=== PATIENT | female | born 1945 | race Caucasian/White ===

== ENCOUNTER 2017-06-18 09:07 | Day surgery (SDC) | payer MEDICARE, BC ==
[~2017-06-18] VITALS: Ht 162.6 cm; Wt 65.4 kg
[~2017-06-18 09:07] MED LIST: Aspir 8181 MG; Calcium + Vita1 EACH PO; ERGO400; Femring1 EAC1; Multiple Vitam1 EACH PO
[2017-06-18] MEDS ORDERED: ZYRTEC10 M1 PO (09:47)
[2017-06-18] MEDS ORDERED: MONT10T PO (09:47)
== END 2017-06-18 11:35 | disposition home or self-care (01) ==
LOC: ORSCSDS 09:07
PROVIDERS: Ophthalmology
PROC: 08RK3JZ Replacement of Left Lens with Synthetic Substitute, Percutaneous Approach (ICD-10-PCS; principal; 2017-06-18 10:30)
DX: H25.12 Age-related nuclear cataract, left eye (principal); J44.9 Chronic obstructive pulmonary disease, unspecified; Z79.82 Long term (current) use of aspirin; Z79.899 Other long term (current) drug therapy
CPT/HCPCS: J2250; J3301; J7040; V2632

== ENCOUNTER 2017-08-16 17:46 | Emergency (ER) | payer MEDICARE, BC ==
[~2017-08-16] VITALS: Ht 162.6 cm; Wt 63.5 kg
[~2017-08-16 17:46] MED LIST changes: +MONT10T PO; +ZYRTEC10 M1 PO
[2017-08-16 19:10] LABS: BASOPHILS ABSOLUTE AUTO 0.06 K/mm3 (0.00-0.23); BASOPHILS PERCENT AUTO 1 % (0-2); EOSINOPHILS ABSOLUTE AUTO 0.15 K/mm3 (0.00-0.68); EOSINOPHILS PERCENT AUTO 2 % (0-6); Hematocrit 38.9 % (33.0-51.0); Hemoglobin 12.8 g/dL (11.5-16.0); IMMATURE GRAN ABSOLUTE AUTO 0.01 K/mm3 (0.00-0.10); IMMATURE GRAN PERCENT AUTO 0 % (0-1); LYMPHOCYTES PERCENT AUTO 31 % (21-46); MONOCYTES ABSOLUTE AUTO 0.55 K/mm3 (0.16-1.47); MONOCYTES PERCENT AUTO 9 % (4-13); Mean Corpuscular HGB 30.5 pg (26.0-34.0); Mean Corpuscular HGB Conc 32.9 g/dL (31.5-36.5); Mean Corpuscular Volume 93 fL (80-100); Mean Platelet Volume 10.5 fL (9.1-12.4); NEUTROPHILS ABSOLUTE AUTO 3.46 K/mm3 (1.96-9.15); NEUTROPHILS PERCENT AUTO 56 % (41-73); Platelet Count 253 K/mm3 (150-400); RDW Coefficient Variation 12.9 % (11.7-14.2); RDW Standard Deviation 44.2 fL (35.1-46.3); White Blood Cell Count 6.13 K/mm3 (4.00-11.30)
[2017-08-16 19:22] LABS: Source, Urine Clean Catch
[2017-08-16 19:40] LABS: Appearance, Urine Clear (Clear); Bilirubin, Urine Neg (Neg); Blood, Urine Neg (Neg); Color, Urine Yellow (P-Yellow); Glucose Qualitative, Urine Neg (Neg); Ketones, Urine Neg (Neg); Leukocyte Esterase, Urine Neg (Neg); Nitrite, Urine Neg (Neg); Protein, Urine Neg (Neg); Urobilinogen, Urine NORM (Normal)
[2017-08-16 20:30] LABS: Alanine Aminotransfer (ALT/SGP 16 U/L (12-78); Albumin, Blood 3.8 g/dL (3.4-5.0); Albumin/Globulin Ratio 1.2 (0.8-1.8); Alk Phos 67 U/L (50-136); Anion Gap 8 mmol/L (6-16); Aspartate Aminotrans (AST/SGOT 20 U/L (12-37); Bilirubin, Total 0.3 mg/dL (0.1-1.0); Blood Urea Nitrogen 17 mg/dL (8-24); Bun/Creatinine Ratio 20.7 (12.0-20.0); CO2, Blood 28 mmol/L (21-32); Calcium, Blood 9.3 mg/dL (8.5-10.1); Chloride, Blood 104 mmol/L (98-108); Creatinine, Blood 0.82 mg/dL (0.40-1.00); Globulin, Blood 3.2 g/dL (2.2-4.0); Glomerular Filtration Rate >60 (60-); Glucose, Blood 98 mg/dL (70-99); Potassium, Blood 3.6 mmol/L (3.5-5.5); Sodium, Blood 140 mmol/L (136-145)
[2017-08-16] MEDS ORDERED: Amlodipine Bes2.5 MG PO (20:45)
== END 2017-08-16 21:36 | disposition home or self-care (01) ==
LOC: ER 17:46
PROVIDERS: Emergency Medicine; Physician Assistant
DX: S06.0X0A Concussion without loss of consciousness, initial encounter (principal); R07.89 Other chest pain; I10 Essential (primary) hypertension; Z87.891 Personal history of nicotine dependence; W22.8XXA Striking against or struck by other objects, initial encounter
CPT/HCPCS: 80053; 81003; 84484; 85025; 93005; 93010; 99283

== ENCOUNTER → 2017-09-16 | Outpatient (CLI) | payer MEDICARE, BC ==
[~2017-09-16] MED LIST changes: +Amlodipine Bes2.5 MG PO
[2017-09-16 15:32] LABS: BASOPHILS ABSOLUTE AUTO 0.04 K/mm3 (0.00-0.23); BASOPHILS PERCENT AUTO 1 % (0-2); EOSINOPHILS PERCENT AUTO 2 % (0-6); Hematocrit 39.5 % (33.0-51.0); Hemoglobin 13.2 g/dL (11.5-16.0); IMMATURE GRAN ABSOLUTE AUTO 0.01 K/mm3 (0.00-0.10); IMMATURE GRAN PERCENT AUTO 0 % (0-1); LYMPHOCYTES ABSOLUTE AUTO 1.86 K/mm3 (0.84-5.20); LYMPHOCYTES PERCENT AUTO 32 % (21-46); MONOCYTES PERCENT AUTO 7 % (4-13); Mean Corpuscular HGB 30.8 pg (26.0-34.0); Mean Corpuscular HGB Conc 33.4 g/dL (31.5-36.5); Mean Corpuscular Volume 92 fL (80-100); Mean Platelet Volume 10.2 fL (9.1-12.4); NEUTROPHILS PERCENT AUTO 59 % (41-73); Platelet Count 263 K/mm3 (150-400); RDW Coefficient Variation 13.2 % (11.7-14.2); RDW Standard Deviation 44.5 fL (35.1-46.3); Red Blood Cell Count 4.29 M/mm3 (3.80-5.20); White Blood Cell Count 5.91 K/mm3 (4.00-11.30)
[2017-09-16 15:56] LABS: Alanine Aminotransfer (ALT/SGP 21 U/L (12-78); Albumin, Blood 3.9 g/dL (3.4-5.0); Albumin/Globulin Ratio 1.1 (0.8-1.8); Alk Phos 62 U/L (40-126); Anion Gap 7 mmol/L (6-16); Aspartate Aminotrans (AST/SGOT 18 U/L (12-37); Bilirubin, Total 0.4 mg/dL (0.1-1.0); Blood Urea Nitrogen 14 mg/dL (8-24); Bun/Creatinine Ratio 17.5 (12.0-20.0); CO2, Blood 31 mmol/L (21-32); Calcium, Blood 9.2 mg/dL (8.5-10.1); Chloride, Blood 104 mmol/L (98-108); Globulin, Blood 3.4 g/dL (2.2-4.0); Glomerular Filtration Rate >60 (60-); Glucose, Blood 99 mg/dL (70-99); Potassium, Blood 4.1 mmol/L (3.5-5.5); Sodium, Blood 142 mmol/L (136-145); Thyroid Stimulating Hormone 3.181 uIU/mL (0.360-4.800); Total Protein, Blood 7.3 g/dL (6.4-8.2)
[2017-09-16 15:57] LABS: Troponin I <0.017 ng/mL (0.000-0.040)
== END ==
LOC: LAB EV 15:28 → LAB SHORT 15:28
PROVIDERS: Physician Assistant Medical
DX: R07.9 Chest pain, unspecified (principal); R53.83 Other fatigue
CPT/HCPCS: 80053; 83690; 84443; 84484; 85025

== ENCOUNTER → 2018-01-14 | Outpatient (CLI) | payer MEDICARE, BC ==
[2018-01-16 14:10] LABS: HPV 16 Negative (Negative); HPV 18 Negative (Negative); HPV OTHER HR TYPES Negative (Negative)
== END | disposition home or self-care (01) ==
LOC: LAB SHORT 10:48 → LAB 10:48
PROVIDERS: Obstetrics & Gynecology Gynecology
DX: Z12.72 Encounter for screening for malignant neoplasm of vagina (principal); L29.3 Anogenital pruritus, unspecified
CPT/HCPCS: 87070; 87205; 87624; G0123

== ENCOUNTER 2018-07-06 09:19 | Day surgery (SDC) | payer MEDICARE, BC ==
[~2018-07-06] VITALS: Ht 162.6 cm; Wt 65.4 kg
[2018-07-06] MEDS ORDERED: CHOL10002 (10:10)
[2018-07-06] MEDS ORDERED: CALCIUM + D SO1 EACH (10:11)
[2018-07-06] MEDS ORDERED: ACID REDUCER20 MG (10:11)
== END 2018-07-06 12:00 | disposition home or self-care (01) ==
LOC: ORSCSDS 09:19
PROVIDERS: Internal Medicine Gastroenterology
PROC: 0DBK8ZX Excision of Ascending Colon, Via Natural or Artificial Opening Endoscopic, Diagnostic (ICD-10-PCS; principal; 2018-07-06 10:30)
PROC: 0DBH8ZX Excision of Cecum, Via Natural or Artificial Opening Endoscopic, Diagnostic (ICD-10-PCS; principal; 2018-07-06 10:30)
DX: Z12.11 Encounter for screening for malignant neoplasm of colon (principal); K57.30 Diverticulosis of large intestine without perforation or abscess without bleeding; K21.9 Gastro-esophageal reflux disease without esophagitis; Z79.82 Long term (current) use of aspirin; Z87.891 Personal history of nicotine dependence; Z79.899 Other long term (current) drug therapy
CPT/HCPCS: 88305; J7120

== ENCOUNTER 2018-12-28 12:23 | Day surgery (SDC) | payer MEDICARE, BC ==
[~2018-12-28] VITALS: Ht 162.6 cm; Wt 65.6 kg
[~2018-12-28 12:23] MED LIST changes: +ACID REDUCER20 MG; +CALCIUM + D SO1 EACH; +CHOL10002
[2018-12-28] MEDS ORDERED: Azor 5-20 MG T1 EACH (12:55)
== END 2018-12-28 14:08 | disposition home or self-care (01) ==
LOC: ORSCSDS 12:23
PROVIDERS: Internal Medicine Gastroenterology
PROC: 0D757ZZ Dilation of Esophagus, Via Natural or Artificial Opening (ICD-10-PCS; principal; 2018-12-28 13:30)
PROC: 0DB58ZX Excision of Esophagus, Via Natural or Artificial Opening Endoscopic, Diagnostic (ICD-10-PCS; principal; 2018-12-28 13:30)
DX: K21.9 Gastro-esophageal reflux disease without esophagitis (principal); R13.14 Dysphagia, pharyngoesophageal phase; K44.9 Diaphragmatic hernia without obstruction or gangrene; I10 Essential (primary) hypertension; Z87.891 Personal history of nicotine dependence; Z79.82 Long term (current) use of aspirin; Z79.899 Other long term (current) drug therapy
CPT/HCPCS: 87081; 88305; J2704; J7120

== ENCOUNTER → 2019-03-17 | Outpatient (CLI) | payer MEDICARE, BC ==
[~2019-03-17] MED LIST changes: +Azor 5-20 MG T1 EACH
== END | disposition home or self-care (01) ==
LOC: PLD 11:40 → LAB SHORT 11:40
DX: D22.5 Melanocytic nevi of trunk (principal)
CPT/HCPCS: 88305

== ENCOUNTER → 2019-07-21 | Outpatient (CLI) | payer MEDICARE, BC ==
[2019-07-21 12:13] LABS: BASOPHILS ABSOLUTE AUTO 0.04 K/mm3 (0.00-0.23); BASOPHILS PERCENT AUTO 1 % (0-2); EOSINOPHILS ABSOLUTE AUTO 0.13 K/mm3 (0.00-0.68); EOSINOPHILS PERCENT AUTO 2 % (0-6); Hematocrit 38.4 % (33.0-51.0); IMMATURE GRAN ABSOLUTE AUTO 0.01 K/mm3 (0.00-0.10); IMMATURE GRAN PERCENT AUTO 0 % (0-1); LYMPHOCYTES ABSOLUTE AUTO 1.79 K/mm3 (0.84-5.20); LYMPHOCYTES PERCENT AUTO 33 % (21-46); MONOCYTES ABSOLUTE AUTO 0.42 K/mm3 (0.16-1.47); MONOCYTES PERCENT AUTO 8 % (4-13); Mean Corpuscular HGB 26.7 pg (26.0-34.0); Mean Corpuscular HGB Conc 31.3 g/dL (31.5-36.5); Mean Corpuscular Volume 86 fL (80-100); Mean Platelet Volume 10.3 fL (9.1-12.4); NEUTROPHILS ABSOLUTE AUTO 3.12 K/mm3 (1.96-9.15); NEUTROPHILS PERCENT AUTO 57 % (41-73); Platelet Count 338 K/mm3 (150-400); RDW Coefficient Variation 14.9 % (11.7-14.2); RDW Standard Deviation 46.5 fL (35.1-46.3); Red Blood Cell Count 4.49 M/mm3 (3.80-5.20); White Blood Cell Count 5.51 K/mm3 (4.00-11.30)
[2019-07-21 12:15] LABS: Anion Gap 5 mmol/L (6-16); Blood Urea Nitrogen 13 mg/dL (8-24); Bun/Creatinine Ratio 15.3 (12.0-20.0); CO2, Blood 30 mmol/L (21-32); Calcium, Blood 9.5 mg/dL (8.5-10.1); Chloride, Blood 104 mmol/L (98-108); Creatinine, Blood 0.85 mg/dL (0.40-1.00); Glomerular Filtration Rate >60 (60-); Glucose, Blood 108 mg/dL (70-99); Potassium, Blood 4.1 mmol/L (3.5-5.5); Sodium, Blood 139 mmol/L (136-145)
== END | disposition home or self-care (01) ==
LOC: LAB EV 12:06 → LAB SHORT 12:06
PROVIDERS: Family Medicine
DX: J06.9 Acute upper respiratory infection, unspecified (principal)
CPT/HCPCS: 80048; 85025

== ENCOUNTER 2019-10-24 07:25 | Observation (INO) | payer MEDICARE, BC ==
[~2019-10-24] VITALS: Ht 162.6 cm; Wt 67.8 kg
[2019-10-24] MEDS ORDERED: AMLODIPINE BES2.5 MG PO (07:51)
[2019-10-24] MEDS ORDERED: ATORVASTATIN CA20 MG PO (07:52)
[2019-10-24] MEDS ORDERED: OMEPRAZOLE CAP 20M (07:52)
[2019-10-24] MEDS ORDERED: MONTELUKAST TAB 10M (07:52)
[2019-10-24 08:03] LABS: BASOPHILS ABSOLUTE AUTO 0.07 K/mm3 (0.00-0.23); BASOPHILS PERCENT AUTO 1 % (0-2); EOSINOPHILS ABSOLUTE AUTO 0.12 K/mm3 (0.00-0.68); EOSINOPHILS PERCENT AUTO 2 % (0-6); Hematocrit 37.2 % (33.0-51.0); Hemoglobin 11.4 g/dL (11.5-16.0); IMMATURE GRAN ABSOLUTE AUTO 0.01 K/mm3 (0.00-0.10); IMMATURE GRAN PERCENT AUTO 0 % (0-1); LYMPHOCYTES ABSOLUTE AUTO 1.66 K/mm3 (0.84-5.20); LYMPHOCYTES PERCENT AUTO 31 % (21-46); MONOCYTES ABSOLUTE AUTO 0.52 K/mm3 (0.16-1.47); MONOCYTES PERCENT AUTO 10 % (4-13); Mean Corpuscular HGB 26.5 pg (26.0-34.0); Mean Corpuscular HGB Conc 30.6 g/dL (31.5-36.5); Mean Corpuscular Volume 87 fL (80-100); Mean Platelet Volume 10.4 fL (9.1-12.4); NEUTROPHILS ABSOLUTE AUTO 3.02 K/mm3 (1.96-9.15); NEUTROPHILS PERCENT AUTO 56 % (41-73); Platelet Count 273 K/mm3 (150-400); RDW Coefficient Variation 16.1 % (11.7-14.2); RDW Standard Deviation 50.7 fL (35.1-46.3)
[2019-10-24 08:16] LABS: Alanine Aminotransfer (ALT/SGP 19 U/L (12-78); Albumin, Blood 3.8 g/dL (3.4-5.0); Albumin/Globulin Ratio 1.1 (0.8-1.8); Alk Phos 73 U/L (50-136); Anion Gap 6 mmol/L (6-16); Aspartate Aminotrans (AST/SGOT 24 U/L (12-37); Bilirubin, Total 0.6 mg/dL (0.1-1.0); Blood Urea Nitrogen 15 mg/dL (8-24); Bun/Creatinine Ratio 18.1 (12.0-20.0); CO2, Blood 28 mmol/L (21-32); Chloride, Blood 105 mmol/L (98-108); Creatinine, Blood 0.83 mg/dL (0.40-1.00); Globulin, Blood 3.6 g/dL (2.2-4.0); Glomerular Filtration Rate >60 (60-); Glucose, Blood 97 mg/dL (70-99); Potassium, Blood 3.6 mmol/L (3.5-5.5); Sodium, Blood 139 mmol/L (136-145); Total Protein, Blood 7.4 g/dL (6.4-8.2); Troponin I 0.049 ng/mL (0.000-0.040)
[2019-10-24 10:28] LABS: Creatine Kinase MB 1.6 ng/mL (0.0-3.6); Creatine Kinase MB Index 1.8 (0.0-4.0)
[2019-10-24] MEDS ORDERED: Vitamin D2000 UNIT PO (11:49)
[2019-10-24] MEDS ORDERED: ASCO500 PO (11:50)
[2019-10-24] MEDS ORDERED: MULTIVITAMINS1 EAC3 PO (11:50)
[2019-10-24 14:03] LABS: Creatine Kinase MB 1.5 ng/mL (0.0-3.6); Creatine Kinase MB Index 2.4 (0.0-4.0)
--- NOTE | 2019-10-24 16:12 | NUR ---
SPOKE TO DR SPRAGUE. OKAY TO STOP IVF IF PT EATING AND DRINKING.
--- NOTE | 2019-10-24 16:38 | NUR ---
ASSUMED CARE FOR PT ABOUT 1530. PT STATES LIGHT TWINGES CHEST PRESURE/PAIN. BETTER THAN BEFORE. STATES IMPROVEMENT. DISCUSSED AND OFFERED TYLENOL FOR HEADACHE AND TUMS. WILL FOLLOW. PT AWARE TO CALL IF CONTINUES OR INCREASES. BED IN LOW POSITION,C ALL LITE IN REACH, CALLS APPROP
--- NOTE | 2019-10-24 16:41 | NUR ---
PT QUITE PLEASANT THIS CHERYL. OCCATIONAL LIGHT TWINGES OF PAIN IN CHEST. ADVISED TO CALL IF INCREASES. D/C IVF IS DRINKING, EATING . TROP DECREASED. CONTINUE TO MONITOR PT. BED IN LOW POSITION,C ALL LITE IN REACH, CALLS APPROP
[2019-10-24 20:13] LABS: Creatine Kinase MB 1.3 ng/mL (0.0-3.6); Creatine Kinase MB Index 1.9 (0.0-4.0)
--- NOTE | 2019-10-25 00:24 | NUR ---
PT. C/O CHEST PRESSURE/SQUEEZING 08/09. MOST RECENT TROP= 0.045, UP FROM PREVIOUS NORMAL TROP. PER TELE PT. RUNNING SR 60, BP @ 169/81. PT. REFUSED NITRO SL DUE TO CONCERN OF ENG. MEDICATED W/FENTANYL PER EMAR. PT. TOLERATED WELL W/MINIMAL RELIEF. NOTIFIED ZITA CAMPER ASSEMBLER. RECEIVED NEW MEDICATION ORDERS. ADMINISTERED PER EMAR. PT. APPEARS TO BE RESTING COMFORTABLY IN BED. NO APPARENT DISTRESS NOTED. DENIES NEEDS AT THIS TIME. CALL LIGHT WITHIN REACH AND SIDE RAILS UP X2. WILL CONT TO MONITOR.
[2019-10-25 02:12] LABS: BASOPHILS ABSOLUTE AUTO 0.07 K/mm3 (0.00-0.23); BASOPHILS PERCENT AUTO 1 % (0-2); EOSINOPHILS ABSOLUTE AUTO 0.13 K/mm3 (0.00-0.68); EOSINOPHILS PERCENT AUTO 3 % (0-6); Hematocrit 35.4 % (33.0-51.0); IMMATURE GRAN ABSOLUTE AUTO 0.01 K/mm3 (0.00-0.10); IMMATURE GRAN PERCENT AUTO 0 % (0-1); LYMPHOCYTES ABSOLUTE AUTO 1.49 K/mm3 (0.84-5.20); LYMPHOCYTES PERCENT AUTO 28 % (21-46); MONOCYTES ABSOLUTE AUTO 0.53 K/mm3 (0.16-1.47); MONOCYTES PERCENT AUTO 10 % (4-13); Mean Corpuscular HGB 26.3 pg (26.0-34.0); Mean Corpuscular HGB Conc 31.1 g/dL (31.5-36.5); Mean Corpuscular Volume 85 fL (80-100); Mean Platelet Volume 10.3 fL (9.1-12.4); NEUTROPHILS ABSOLUTE AUTO 3.01 K/mm3 (1.96-9.15); NEUTROPHILS PERCENT AUTO 58 % (41-73); Platelet Count 297 K/mm3 (150-400); RDW Coefficient Variation 15.9 % (11.7-14.2); RDW Standard Deviation 49.4 fL (35.1-46.3); Red Blood Cell Count 4.19 M/mm3 (3.80-5.20); White Blood Cell Count 5.24 K/mm3 (4.00-11.30)
[2019-10-25 02:31] LABS: Anion Gap 6 mmol/L (6-16); Blood Urea Nitrogen 14 mg/dL (8-24); Bun/Creatinine Ratio 17.6 (12.0-20.0); CHOL/HDL RATIO 2.4; CO2, Blood 30 mmol/L (21-32); Calcium, Blood 9.4 mg/dL (8.5-10.1); Chloride, Blood 104 mmol/L (98-108); Cholesterol 169 mg/dL (50-200); Glomerular Filtration Rate >60 (60-); Glucose, Blood 99 mg/dL (70-99); HDL Cholesterol 69 mg/dL (>39); LDL/HDL RATIO 1.1; Low Density Lipoprotein Chol 75 mg/dL (0-110); Magnesium, Blood 1.8 mg/dL (1.6-2.4); Potassium, Blood 3.6 mmol/L (3.5-5.5); Sodium, Blood 140 mmol/L (136-145); Triglycerides 127 mg/dL (30-160); Troponin I 0.042 ng/mL (0.000-0.040); Very Low Density Lipoprot Chol 25 mg/dL (6-32)
--- NOTE | 2019-10-25 04:27 | NUR ---
SHIFT SUMMARY- PT. A&OX4, INDEPENDENT IN ROOM. AFTER TREATED FOR CHEST PAIN PER ORDERS, SLEPT WELL THE REST OF THE NIGHT. NO APPARENT DISTRESS NOTED. LAST TROP TRENDING DOWN. DENIES ANY NEEDS AT THIS TIME. CALL LIGHT WITHIN REACH AND SIDE RAILS UPX2. WILL CONT TO MONITOR.
--- NOTE | 2019-10-25 11:20 | NUR ---
Echocardiogram completed.
--- NOTE | 2019-10-25 18:18 | NUR ---
SHIFT SUMMARY. A&OX4, INDEPENDENT IN ROOM. PT WITH MILD 3/10 CHEST PRESSURE EARLY THIS AM, PT REPORTED THAT THIS PRESSURE HAD SUBSIDED BY LATER MORNING WITHOUT FURTHER INTERVENTION. PT DENIES SOB, N/V. DR. HOBBS CONSULTED TODAY, CARDIOLYTE STRESS TEST ORDERED, FIRST PART COMPLETED THIS AFTERNOON. PT IS TO HAVE NO CAFFEINE PAST 1999 TONIGHT, NPO AFTER BREAKFAST TOMORROW PER [facility], SECOND PART OF STRESS TEST TO BE COMPLETED AFTERNOON.
--- NOTE | 2019-10-26 04:36 | NUR ---
GAUGE CONTROLLER SUMMARY NO ACUTE CHANGES THIS SHIFT. PT AAOX4 AND INDEPENDENT IN ROOM. DENIES SOB OR CP. NO CHANGES ON TELEMETRY. PT TO HAVE PART 2 OF STRESS TEST LATER TODAY. VSS, WILL CONTINUE TO MONITOR.
[2019-10-26] MEDS ORDERED: MONT10T PO (17:18)
[2019-10-26] MEDS ORDERED: OMEP20ER PO (17:19)
--- NOTE | 2019-10-26 18:23 | NUR ---
DISCHARGE NOTE: EDUCATION/ DISCHARGE INSTRUCTIONS GONE OVER WITH PT. PT DISCHARGED HOME AT 1753. TAKEN TO FAMILY VIA W/C. TELE AND IV DC'D IN TACT.
== END 2019-10-26 17:53 | disposition home or self-care (01) ==
LOC: ER 07:25 → MEDS 07:26
PROVIDERS: Emergency Medicine; ADMIT Family Medicine
DX: R07.89 Other chest pain (principal); I10 Essential (primary) hypertension; E78.5 Hyperlipidemia, unspecified; K21.9 Gastro-esophageal reflux disease without esophagitis; Z87.891 Personal history of nicotine dependence; Z79.899 Other long term (current) drug therapy; Z88.5 Allergy status to narcotic agent; Z88.2 Allergy status to sulfonamides; Z88.8 Allergy status to other drugs, medicaments and biological substances
CPT/HCPCS: 36415; 71045; 76700; 78452; 80048; 80053; 80061; 82550; 82553; 83735; 84484; 85025; 85379; 93005; 93010; 93017; 93306; 99285-25; A9270; A9270-GY; A9500; J0706; J1650; J2785; J3010; J7030

== ENCOUNTER 2020-08-26 13:17 | Emergency (ER) | payer MEDICARE, BC ==
[~2020-08-26] VITALS: Ht 165.1 cm; Wt 63.5 kg
[~2020-08-26 13:17] MED LIST changes: +AMLODIPINE BES2.5 MG PO; +ASCO500 PO; +ATORVASTATIN CA20 MG PO; +MONTELUKAST TAB 10M; +MULTIVITAMINS1 EAC3 PO; +OMEP20ER PO; +OMEPRAZOLE CAP 20M; +Vitamin D2000 UNIT PO
[2020-08-26 15:06] LABS: BASOPHILS ABSOLUTE AUTO 0.01 K/mm3 (0.00-0.23); BASOPHILS PERCENT AUTO 0 % (0-2); EOSINOPHILS PERCENT AUTO 0 % (0-6); Hematocrit 35.3 % (33.0-51.0); Hemoglobin 11.3 g/dL (11.5-16.0); IMMATURE GRAN ABSOLUTE AUTO 0.03 K/mm3 (0.00-0.10); IMMATURE GRAN PERCENT AUTO 0 % (0-1); LYMPHOCYTES PERCENT AUTO 10 % (21-46); MONOCYTES PERCENT AUTO 4 % (4-13); Mean Corpuscular HGB 27.8 pg (26.0-34.0); Mean Corpuscular Volume 87 fL (80-100); Mean Platelet Volume 10.9 fL (9.1-12.4); NEUTROPHILS ABSOLUTE AUTO 5.93 K/mm3 (1.96-9.15); NEUTROPHILS PERCENT AUTO 85 % (41-73); Platelet Count 201 K/mm3 (150-400); RDW Standard Deviation 44.7 fL (35.1-46.3); Red Blood Cell Count 4.06 M/mm3 (3.80-5.20); White Blood Cell Count 6.97 K/mm3 (4.00-11.30)
[2020-08-26 15:30] LABS: Alanine Aminotransfer (ALT/SGP 15 U/L (12-78); Albumin, Blood 2.9 g/dL (3.4-5.0); Albumin/Globulin Ratio 0.9 (0.8-1.8); Alk Phos 90 U/L (50-136); Anion Gap 3 mmol/L (6-16); Aspartate Aminotrans (AST/SGOT 16 U/L (12-37); Bilirubin, Total 0.4 mg/dL (0.1-1.0); Blood Urea Nitrogen 14 mg/dL (8-24); Bun/Creatinine Ratio 16.8 (12.0-20.0); CO2, Blood 31 mmol/L (21-32); Calcium, Blood 8.5 mg/dL (8.5-10.1); Chloride, Blood 107 mmol/L (98-108); Creatinine, Blood 0.84 mg/dL (0.40-1.00); Globulin, Blood 3.4 g/dL (2.2-4.0); Glomerular Filtration Rate >60 (60-); Glucose, Blood 93 mg/dL (70-99); Potassium, Blood 3.1 mmol/L (3.5-5.5); Sodium, Blood 141 mmol/L (136-145); Total Protein, Blood 6.3 g/dL (6.4-8.2)
== END 2020-08-26 17:08 | disposition home or self-care (01) ==
LOC: ER 13:17
PROVIDERS: Emergency Medicine
DX: U07.1 COVID-19 (principal); E87.6 Hypokalemia; K21.9 Gastro-esophageal reflux disease without esophagitis; I10 Essential (primary) hypertension; E78.5 Hyperlipidemia, unspecified; R63.0 Anorexia; Z88.5 Allergy status to narcotic agent; Z91.09 Other allergy status, other than to drugs and biological substances; Z88.1 Allergy status to other antibiotic agents; Z88.6 Allergy status to analgesic agent; Z87.891 Personal history of nicotine dependence; Z79.899 Other long term (current) drug therapy
CPT/HCPCS: 36415; 71045; 80053; 85025; 93005; 93010; 96360; 99285-25; A9270; J7120

== ENCOUNTER → 2021-01-02 | Outpatient (CLI) | payer MEDICARE, BC ==
[2021-01-04 16:58] LABS: CORONAVIRUS (COVID19) CSH-NRL Negative (Negative)
== END ==
LOC: LAB 15:52 → LAB SHORT 15:52
PROVIDERS: Physician Assistant
DX: R53.83 Other fatigue (principal); Z20.822 Contact with and (suspected) exposure to COVID-19; Z88.2 Allergy status to sulfonamides; Z88.5 Allergy status to narcotic agent; Z88.1 Allergy status to other antibiotic agents; Z88.6 Allergy status to analgesic agent; Z88.8 Allergy status to other drugs, medicaments and biological substances; Z91.048 Other nonmedicinal substance allergy status
CPT/HCPCS: U0003

== ENCOUNTER → 2021-12-15 | Outpatient (CLI) | payer MEDICARE, BC | END | disposition home or self-care (01) | LOC: LAB SHORT 13:01 → LAB 13:01 | DX: N39.0 Urinary tract infection, site not specified (principal) | CPT/HCPCS: 87077; 87086; 87186 ==

== ENCOUNTER → 2022-06-26 | Outpatient (CLI) | payer MEDICARE, BC ==
[2022-06-26 12:16] LABS: BASOPHILS ABSOLUTE AUTO 0.06 K/mm3 (0.00-0.23); BASOPHILS PERCENT AUTO 1 % (0-2); EOSINOPHILS ABSOLUTE AUTO 0.09 K/mm3 (0.00-0.68); EOSINOPHILS PERCENT AUTO 2 % (0-6); Hematocrit 38.6 % (33.0-51.0); Hemoglobin 12.5 g/dL (11.5-16.0); IMMATURE GRAN ABSOLUTE AUTO 0.01 K/mm3 (0.00-0.10); IMMATURE GRAN PERCENT AUTO 0 % (0-1); LYMPHOCYTES ABSOLUTE AUTO 1.15 K/mm3 (0.84-5.20); LYMPHOCYTES PERCENT AUTO 23 % (21-46); MONOCYTES ABSOLUTE AUTO 0.43 K/mm3 (0.16-1.47); MONOCYTES PERCENT AUTO 9 % (4-13); Mean Corpuscular HGB 29.2 pg (26.0-34.0); Mean Corpuscular HGB Conc 32.4 g/dL (31.5-36.5); Mean Corpuscular Volume 90 fL (80-100); Mean Platelet Volume 10.3 fL (9.1-12.4); NEUTROPHILS ABSOLUTE AUTO 3.33 K/mm3 (1.96-9.15); NEUTROPHILS PERCENT AUTO 66 % (41-73); Platelet Count 260 K/mm3 (150-400); RDW Coefficient Variation 14.2 % (11.7-14.2); RDW Standard Deviation 46.6 fL (35.1-46.3); Red Blood Cell Count 4.28 M/mm3 (3.80-5.20); White Blood Cell Count 5.07 K/mm3 (4.00-11.30)
[2022-06-26 12:36] LABS: Albumin, Blood 3.9 g/dL (3.4-5.0); Albumin/Globulin Ratio 1.1 (0.8-1.8); Bilirubin, Total 0.6 mg/dL (0.1-1.0); Bun/Creatinine Ratio 15.2 (12.0-20.0); Calcium, Blood 9.1 mg/dL (8.5-10.1); Creatinine, Blood 0.79 mg/dL (0.40-1.00); Globulin, Blood 3.6 g/dL (2.2-4.0); Potassium, Blood 3.4 mmol/L (3.5-5.5); Thyroid Stimulating Hormone 1.673 uIU/mL (0.360-4.800); Total Protein, Blood 7.5 g/dL (6.4-8.2)
== END | disposition home or self-care (01) ==
LOC: LAB SHORT 12:12
PROVIDERS: Chiropractor
DX: R07.89 Other chest pain (principal); R53.83 Other fatigue
CPT/HCPCS: 80053; 84443; 84484; 85025; 85379

== ENCOUNTER → 2022-10-07 | Outpatient (CLI) | payer MEDICARE, BC ==
[2022-10-07 11:45] LABS: Albumin, Blood 3.8 g/dL (3.4-5.0); Albumin/Globulin Ratio 1.1 (0.8-1.8); Bilirubin, Total 0.7 mg/dL (0.1-1.0); Bun/Creatinine Ratio 15.1 (12.0-20.0); Calcium, Blood 9.1 mg/dL (8.5-10.1); Creatinine, Blood 0.86 mg/dL (0.40-1.00); Globulin, Blood 3.5 g/dL (2.2-4.0); Potassium, Blood 4.3 mmol/L (3.5-5.5); Total Protein, Blood 7.3 g/dL (6.4-8.2)
[2022-10-07 12:23] LABS: BASOPHILS ABSOLUTE AUTO 0.05 K/mm3 (0.00-0.23); BASOPHILS PERCENT AUTO 1 % (0-2); EOSINOPHILS ABSOLUTE AUTO 0.04 K/mm3 (0.00-0.68); EOSINOPHILS PERCENT AUTO 1 % (0-6); Hematocrit 37.2 % (33.0-51.0); Hemoglobin 12.3 g/dL (11.5-16.0); IMMATURE GRAN ABSOLUTE AUTO 0.01 K/mm3 (0.00-0.10); IMMATURE GRAN PERCENT AUTO 0 % (0-1); LYMPHOCYTES ABSOLUTE AUTO 0.83 K/mm3 (0.84-5.20); LYMPHOCYTES PERCENT AUTO 20 % (21-46); MONOCYTES PERCENT AUTO 10 % (4-13); Mean Corpuscular HGB 30.4 pg (26.0-34.0); Mean Corpuscular HGB Conc 33.1 g/dL (31.5-36.5); Mean Corpuscular Volume 92 fL (80-100); Mean Platelet Volume 11.1 fL (9.1-12.4); NEUTROPHILS PERCENT AUTO 69 % (41-73); Platelet Count 257 K/mm3 (150-400); RDW Coefficient Variation 14.6 % (11.7-14.2); RDW Standard Deviation 49.3 fL (35.1-46.3); Red Blood Cell Count 4.04 M/mm3 (3.80-5.20); White Blood Cell Count 4.23 K/mm3 (4.00-11.30)
== END | disposition home or self-care (01) ==
LOC: LAB 11:24 → LAB SHORT 11:24
PROVIDERS: Family Medicine
DX: R42 Dizziness and giddiness (principal)
CPT/HCPCS: 80053; 85025

== ENCOUNTER 2024-02-05 13:08 | Observation (INO) | payer MEDICARE ==
[~2024-02-05] VITALS: Ht 162.6 cm; Wt 53.0 kg
[2024-02-05] MEDS ORDERED: Nitroglycerin 0.4 MG SUBL SL ONE (13:35)
[2024-02-05 13:43] LABS: BASOPHILS ABSOLUTE AUTO 0.06 K/mm3 (0.00-0.23); BASOPHILS PERCENT AUTO 1 % (0-2); EOSINOPHILS PERCENT AUTO 1 % (0-6); Hematocrit 34.1 % (33.0-51.0); Hemoglobin 11.2 g/dL (11.5-16.0); IMMATURE GRAN ABSOLUTE AUTO 0.04 K/mm3 (0.00-0.10); IMMATURE GRAN PERCENT AUTO 1 % (0-1); LYMPHOCYTES PERCENT AUTO 9 % (21-46); MONOCYTES ABSOLUTE AUTO 0.65 K/mm3 (0.16-1.47); MONOCYTES PERCENT AUTO 8 % (4-13); Mean Corpuscular HGB 30.4 pg (26.0-34.0); Mean Corpuscular HGB Conc 32.8 g/dL (31.5-36.5); Mean Corpuscular Volume 92 fL (80-100); NEUTROPHILS ABSOLUTE AUTO 6.57 K/mm3 (1.96-9.15); NEUTROPHILS PERCENT AUTO 81 % (41-73); Platelet Count 327 K/mm3 (150-400); RDW Coefficient Variation 14.3 % (11.7-14.2); RDW Standard Deviation 48.9 fL (35.1-46.3); Red Blood Cell Count 3.69 M/mm3 (3.80-5.20); White Blood Cell Count 8.12 K/mm3 (4.00-11.30)
[2024-02-05 14:12] LABS: Albumin, Blood 3.2 g/dL (3.4-5.0); Albumin/Globulin Ratio 0.6 (0.8-1.8); Bilirubin, Total 0.5 mg/dL (0.1-1.0); Bun/Creatinine Ratio 13.3 (12.0-20.0); Calcium, Blood 9.2 mg/dL (8.5-10.1); Creatinine, Blood 0.75 mg/dL (0.40-1.00); Total Protein, Blood 8.2 g/dL (6.4-8.2)
[2024-02-05 15:00] LABS: Anti-Xa UFH, PHA Monitoring <0.10 IU/mL; International Normalized Ratio 1.04; Prothrombin Time Results 11.1 Sec (9.7-11.5)
[2024-02-05] MEDS ORDERED: Dose Adjust by Pharmacy XX STA ×2 (15:08→23:29)
[2024-02-05] MEDS ORDERED: Heparin Sodium,Porcine/0.5 NS 500 ML IV SCH (15:10)
[2024-02-05] MEDS ORDERED: Magnesium Hydroxide Conc 10 ML UDC PO PRN (16:05)
[2024-02-05] MEDS ORDERED: Bisacodyl 10 MG Supp PR PRN (16:05)
[2024-02-05] MEDS ORDERED: Ondansetron 4 MG TAB PO PRN (16:10)
[2024-02-05] MEDS ORDERED: Ondansetron HCl 2 MG / ML 2ML Vial IV PRN (16:10)
[2024-02-05] MEDS ORDERED: Temazepam 15 MG Cap PO PRN (16:10)
[2024-02-05] MEDS ORDERED: Famotidine 20 MG Tab PO SCH (17:00)
[2024-02-05] MEDS ORDERED: ASPI325 PO (18:19)
[2024-02-05] MEDS ORDERED: FEMRING (18:20)
[2024-02-05 19:48] VITALS: BP 127/73
[2024-02-05] MEDS ORDERED: Atorvastatin 10 MG Tab PO SCH (21:00)
[2024-02-05] MEDS ORDERED: Sennosides 8.6 MG Tab PO SCH (21:00)
[2024-02-05] MEDS ORDERED: Simethicone 80 MG Chew PO PRN (22:15)
--- NOTE | 2024-02-05 22:15 | NUR ---
DOCTOR ROUNDING DR. GOLDMAN ROUNDED ON THE PATIENT AND ASSESSED HER. ASKED TO MAKE SURE THE PATIENT GETS A CRP AND GAS EX. POTENTIAL PERICARDITIS
[2024-02-05] MEDS ORDERED: Ketorolac Tromethamine 15mg Vial IV PRN (23:35)
[2024-02-06 03:53] LABS: BASOPHILS ABSOLUTE AUTO 0.06 K/mm3 (0.00-0.23); BASOPHILS PERCENT AUTO 1 % (0-2); EOSINOPHILS ABSOLUTE AUTO 0.11 K/mm3 (0.00-0.68); EOSINOPHILS PERCENT AUTO 2 % (0-6); Hematocrit 30.5 % (33.0-51.0); Hemoglobin 10.1 g/dL (11.5-16.0); IMMATURE GRAN ABSOLUTE AUTO 0.02 K/mm3 (0.00-0.10); IMMATURE GRAN PERCENT AUTO 0 % (0-1); LYMPHOCYTES ABSOLUTE AUTO 0.69 K/mm3 (0.84-5.20); LYMPHOCYTES PERCENT AUTO 11 % (21-46); MONOCYTES ABSOLUTE AUTO 0.57 K/mm3 (0.16-1.47); MONOCYTES PERCENT AUTO 9 % (4-13); Mean Corpuscular HGB 30.1 pg (26.0-34.0); Mean Corpuscular HGB Conc 33.1 g/dL (31.5-36.5); Mean Corpuscular Volume 91 fL (80-100); Mean Platelet Volume 10.3 fL (9.1-12.4); NEUTROPHILS ABSOLUTE AUTO 5.03 K/mm3 (1.96-9.15); NEUTROPHILS PERCENT AUTO 78 % (41-73); Platelet Count 314 K/mm3 (150-400); RDW Coefficient Variation 14.4 % (11.7-14.2); RDW Standard Deviation 47.8 fL (35.1-46.3); Red Blood Cell Count 3.35 M/mm3 (3.80-5.20); White Blood Cell Count 6.48 K/mm3 (4.00-11.30)
[2024-02-06 04:10] LABS: Alanine Aminotransfer (ALT/SGP 11 U/L (12-78); Albumin, Blood 2.7 g/dL (3.4-5.0); Albumin/Globulin Ratio 0.6 (0.8-1.8); Alk Phos 69 U/L (50-136); Anion Gap 11 mmol/L (3-11); Aspartate Aminotrans (AST/SGOT 27 U/L (12-37); Bilirubin, Total 0.5 mg/dL (0.1-1.0); Blood Urea Nitrogen 11 mg/dL (8-24); Bun/Creatinine Ratio 14.3 (12.0-20.0); CHOL/HDL RATIO 2.3; CO2, Blood 25 mmol/L (21-32); Chloride, Blood 108 mmol/L (98-108); Cholesterol 131 mg/dL (50-200); Creatinine, Blood 0.77 mg/dL (0.40-1.00); Globulin, Blood 4.4 g/dL (2.2-4.0); Glomerular Filtration Rate 78 (60-); Glucose, Blood 88 mg/dL (70-99); HDL Cholesterol 58 mg/dL (>39); Low Density Lipoprotein Chol 60 mg/dL (0-110); Potassium, Blood 3.7 mmol/L (3.5-5.5); Sodium, Blood 140 mmol/L (136-145); Total Protein, Blood 7.1 g/dL (6.4-8.2); Triglycerides 66 mg/dL (30-160); Very Low Density Lipoprot Chol 13 mg/dL (6-32)
[2024-02-06 04:25] VITALS: BP 133/76
--- NOTE | 2024-02-06 04:58 | NUR ---
SHIFT SUMMARY VSS. PT HAS SLEPT ON AND OFF T/O THE NIGHT. HEPARIN DRIP RUNNING PER EMAR. AWAITING LAB RESULTS TO START IVF. PT REMAINS A/OX4 AND INDEP IN ROOM. VOIDING W/O DIFFICULTY. MEDICATED FOR PAIN PER EMAR W/TORADOL. PT REPORTED SIGNIFIGANT RELIEF. HAS BEEN NPO T/O THE NIGHT, IN PREPERATION FOR STRESS TEST TODAY.
[2024-02-06] MEDS ORDERED: NS 1,000 ML IV SCH ×2 (05:50→16:55)
[2024-02-06] MEDS ORDERED: Omeprazole 20 MG CapCR PO SCH (06:00)
[2024-02-06 07:22] VITALS: BP 130/77
[2024-02-06] MEDS ORDERED: Dose Adjust by Pharmacy XX STA (07:39)
[2024-02-06] MEDS ORDERED: Enoxaparin 40 MG/0.4 ML SYR SC SCH (09:00)
[2024-02-06] MEDS ORDERED: AmLODIPine Besylate 5 MG Tab PO SCH (09:00)
[2024-02-06] MEDS ORDERED: Colchicine 0.6 MG TAB PO SCH (11:10)
--- NOTE | 2024-02-06 13:56 | NUR ---
pt to imaging.
[2024-02-06] MEDS ORDERED: Aspirin 325 MG TabEC PO SCH (14:00)
--- NOTE | 2024-02-06 14:10 | NUR ---
BACK FROM IMAGING.
[2024-02-06 15:24] VITALS: BP 109/67
--- NOTE | 2024-02-06 17:03 | NUR ---
SUMMARY NO ACUTE CHANGES T/O SHIFT. PT HAD FIRST PORTION OF STRESS TEST TODAY, SECOND PLANNED FOR TOMORROW MORNING. ORDERS OBTAINED FOR NO CAFFEINE AFTER 1900 TODAY AND NPO AFTER MN TONIGHT. PT ONLY HAD 200 ML URINE OUT, WHICH APPEARED CONCENTRATED. NOTIFIED DR ALICIA AND OBTAINED ORDERS TO CONTINUE NS IV FLUIDS AT 75 ML/HR. PT PLEASANT AND COOPERATIVE. CALL LIGHT IN REACH.
[2024-02-06 21:26] VITALS: BP 131/72
[2024-02-07 03:34] VITALS: BP 137/74
--- NOTE | 2024-02-07 05:09 | NUR ---
SHIFT SUMMARY VSS. PT SLEPT ON AND OFF T/O THE NIGHT. NO REPORTS OF CHEST PAIN OR PRESSURE. PT REPORTS OVERALL IMPROVED COMFORT, TOLLERATED A SHOWER AND WALKING T/O THE HALLS. VOIDING WELL AND PASSING FLATTUS, REPORTS "A LOT" OF BELCHING. PT HAS BEEN NPO SINCE 0000 FOR STRESS TEST TODAY. OVERALL, NO ACUTE EVENTS NOTED.
[2024-02-07] MEDS ORDERED: Pantoprazole Sodium 40 MG Tab PO SCH (06:00)
[2024-02-07 07:08] VITALS: BP 119/67
[2024-02-07] MEDS ORDERED: Regadenoson 0.4 MG/5 ML SYRINGE ONE (08:04)
[2024-02-07] MEDS ORDERED: Colchicine 0.6 MG TAB PO SCH (09:00)
[2024-02-07 15:39] VITALS: BP 149/79
[2024-02-07] MEDS ORDERED: COLCHICINE0.6 MG PO (16:21)
--- NOTE | 2024-02-07 17:08 | NUR ---
DISCHARGE PT IND IN ROOM, CONTINUED TO DENY CHEST PAIN DURING SHIFT. STRESS TEST FINISHED. TOLERATING DIET WELL. VOIDING. ALL BELONGINGS WITH PATIENT. ESCORTED OUT VIA WHEELCHAIR. ALL INSTRUCTIONS GONE OVER WITH PATIENT.
== END 2024-02-07 17:06 | disposition home or self-care (01) ==
LOC: ER 13:08 → SURS 16:03
PROVIDERS: Emergency Medicine; ADMIT Internal Medicine
DX: I30.9 Acute pericarditis, unspecified (principal); I10 Essential (primary) hypertension; E78.5 Hyperlipidemia, unspecified; K44.9 Diaphragmatic hernia without obstruction or gangrene; K21.9 Gastro-esophageal reflux disease without esophagitis; Z87.891 Personal history of nicotine dependence; Z88.2 Allergy status to sulfonamides; Z88.8 Allergy status to other drugs, medicaments and biological substances; Z88.5 Allergy status to narcotic agent; Z88.1 Allergy status to other antibiotic agents; Z79.82 Long term (current) use of aspirin; Z79.899 Other long term (current) drug therapy
CPT/HCPCS: 36415; 71046; 78452; 80053; 80061; 83880; 84484; 85025; 85520; 85610; 85651; 86140; 93005; 93010; 93017; 93306; 94760; 96374; 96375; 99285-25; A9270; A9500; G0378; J1644; J1885; J2785; J7030

== ENCOUNTER 2024-05-11 11:32 | Emergency (ER) | payer MEDICARE, BC ==
[~2024-05-11] VITALS: Ht 152.4 cm; Wt 47.6 kg
[~2024-05-11 11:32] MED LIST changes: +ASPI325 PO; +COLCHICINE0.6 MG PO; +FEMRING
[2024-05-11 12:56] LABS: Influenza A, PCR NEGATIVE (NEGATIVE); Influenza B, PCR NEGATIVE (NEGATIVE); Resp Syncytial Virus, PCR NEGATIVE (NEGATIVE); SARS-Cov-2 (COVID-19) PCR, MMC NEGATIVE (NEGATIVE)
[2024-05-11] MEDS ORDERED: Acetaminophen 500 MG Tab PO ONE (13:00)
[2024-05-11 14:05] VITALS: BP 157/95
== END 2024-05-11 14:13 | disposition home or self-care (01) ==
LOC: ER 11:32
PROVIDERS: Emergency Medicine
DX: R50.9 Fever, unspecified (principal); D72.829 Elevated white blood cell count, unspecified; C56.9 Malignant neoplasm of unspecified ovary; K21.9 Gastro-esophageal reflux disease without esophagitis; E78.5 Hyperlipidemia, unspecified; I10 Essential (primary) hypertension; Z87.891 Personal history of nicotine dependence; Z79.82 Long term (current) use of aspirin; Z79.899 Other long term (current) drug therapy; Z88.5 Allergy status to narcotic agent; Z88.1 Allergy status to other antibiotic agents; Z88.8 Allergy status to other drugs, medicaments and biological substances
CPT/HCPCS: 0241U; 71046; 80053; 83605; 85025; 87040; 99285; A9270

== ENCOUNTER → 2024-10-04 | Outpatient (CLI) | payer MEDICARE | LOC: LAB SHORT 07:49 → LAB 07:49 | DX: N39.0 Urinary tract infection, site not specified (principal) | CPT/HCPCS: 87077; 87086; 87147; 87186 ==

== ENCOUNTER → 2024-10-19 | Outpatient (CLI) | payer MEDICARE, BC | LOC: LAB 12:17 → LAB SHORT 12:17 | DX: R30.0 Dysuria (principal) | CPT/HCPCS: 87086 ==

== ENCOUNTER → 2025-02-11 | Outpatient (CLI) | payer MEDICARE, BC | LOC: LAB SHORT 09:54 → LAB 09:54 | DX: N39.0 Urinary tract infection, site not specified (principal) | CPT/HCPCS: 87077; 87086; 87186 ==

== ENCOUNTER → 2025-03-29 | Outpatient (CLI) | payer MEDICARE, BC | END | disposition home or self-care (01) | LOC: LAB 09:29 → LAB SHORT 09:29 | DX: N39.0 Urinary tract infection, site not specified (principal) | CPT/HCPCS: 87077; 87086; 87186 ==

== ENCOUNTER → 2025-05-24 | Outpatient (CLI) | payer MEDICARE, BC ==
[2025-05-24 11:18] LABS: BASOPHILS ABSOLUTE AUTO 0.04 K/mm3 (0.00-0.23); BASOPHILS PERCENT AUTO 1 % (0-2); EOSINOPHILS ABSOLUTE AUTO 0.08 K/mm3 (0.00-0.68); EOSINOPHILS PERCENT AUTO 2 % (0-6); Hematocrit 41.4 % (33.0-51.0); Hemoglobin 13.5 g/dL (11.5-16.0); IMMATURE GRAN ABSOLUTE AUTO 0.01 K/mm3 (0.00-0.10); IMMATURE GRAN PERCENT AUTO 0 % (0-1); LYMPHOCYTES ABSOLUTE AUTO 1.20 K/mm3 (0.84-5.20); LYMPHOCYTES PERCENT AUTO 29 % (21-46); MONOCYTES ABSOLUTE AUTO 0.38 K/mm3 (0.16-1.47); MONOCYTES PERCENT AUTO 9 % (4-13); Mean Corpuscular HGB Conc 32.6 g/dL (31.5-36.5); Mean Corpuscular Volume 95 fL (80-100); NEUTROPHILS ABSOLUTE AUTO 2.48 K/mm3 (1.96-9.15); NEUTROPHILS PERCENT AUTO 59 % (41-73); NRBC ABSOLUTE 0.00 K/mm3 (0.00-0.02); NRBC Auto 0.0 /100 WBC (0.0-0.2); Platelet Count 206 K/mm3 (150-400); RDW Coefficient Variation 13.5 % (11.7-14.2); RDW Standard Deviation 47.2 fL (35.1-46.3)
[2025-05-24 11:37] LABS: Alanine Aminotransfer (ALT/SGP 27.0 U/L (12-78); Albumin, Blood 4.3 g/dL (3.4-5.0); Albumin/Globulin Ratio 1.2 (0.8-1.8); Anion Gap 15.0 mmol/L (3-11); Aspartate Aminotrans (AST/SGOT 26.0 U/L (12-37); Bilirubin, Total 0.6 mg/dL (0.1-1.0); Blood Urea Nitrogen 19.0 mg/dL (8-24); CO2, Blood 30.0 mmol/L (21-32); Calcium, Blood 9.8 mg/dL (8.5-10.1); Chloride, Blood 104.0 mmol/L (98-108); Creatinine, Blood 0.89 mg/dL (0.40-1.00); Globulin, Blood 3.6 g/dL (2.2-4.0); Glucose, Blood 109.0 mg/dL (70-99); Potassium, Blood 4.7 mmol/L (3.5-5.5); Sodium, Blood 144.0 mmol/L (136-145); Total Protein, Blood 7.9 g/dL (6.4-8.2)
== END | disposition home or self-care (01) ==
LOC: LAB 11:13 → LAB SHORT 11:13
PROVIDERS: Physician Assistant
DX: R53.83 Other fatigue (principal)
CPT/HCPCS: 80053; 83690; 85025